=== PATIENT | female | born 1940 | race Caucasian/White ===

== ENCOUNTER 2021-07-05 13:15 | Emergency (ER) | payer MEDICARE, OTHER | END 2021-07-05 14:20 | disposition home or self-care (01) | LOC: ERS 13:15 | DX: M25.562 Pain in left knee (principal); E78.5 Hyperlipidemia, unspecified; Z79.899 Other long term (current) drug therapy | CPT/HCPCS: 99283 ==

== ENCOUNTER 2022-10-05 17:39 | Inpatient (IN) | payer MEDICARE ==
[2022-10-05 19:44] LABS: #Eosinphils 0.2 thou/uL (0.0-0.7); #Lymphocytes 1.9 thou/uL (1.20-3.40); #Monocytes 0.7 thou/uL (0.11-0.59); %Basophils 0.5 % (0.0-1.0); %Eosinophils 2.4 % (0.0-10.0); %Lymphocytes 19.4 % (21.0-51.0); %Monocytes 7.4 % (0.0-10.0); %Neutrophils 70.4 % (42.0-75.0); Hemoglobin 12.8 g/dL (12.0-16.0); Mean Corpuscular HGB CONC 33.3 g/dL (32.0-36.0); Mean Corpuscular Hemoglobin 30.4 pg (27.0-31.0); Mean Corpuscular Volume 91.5 fl (78.0-98.0); Mean Platelet Volume 7.4 fL (7.4-10.4); Platelet Count 217 10x3/uL (130-400); RBC Distribution Width 12.7 % (11.5-14.5); Red Blood Cell (RBC) Count 4.21 mill/uL (4.20-5.40); White Blood Cell (WBC) Count 9.9 10x3/uL (4.8-10.8)
[2022-10-05] MEDS ORDERED: CEFAZOLIN 2 GM VIAL ONE (20:00)
[2022-10-05] MEDS ORDERED: Morphine 4 MG/ML VIAL ONE (20:00)
[2022-10-05] MEDS ORDERED: Boostrix 0.5 ML (Tdap) VIAL (>/=7 yrs of age) ONE (20:00)
[2022-10-05 20:15] LABS: PTT 28.6 sec (22.9-36.1); Prothrombin Time 13.8 sec (12.0-14.7)
[2022-10-05] MEDS ORDERED: Ondansetron PF 4 MG/2 ML Vial IVP PRN ×2 (21:45→22:16)
[2022-10-05] MEDS ORDERED: Ondansetron ODT 4 MG TAB SL PRN (21:45)
[2022-10-05 21:53] VITALS: BMI 28.0
[2022-10-05 22:07] LABS: Albumin 3.8 g/dL (3.4-4.8)
[2022-10-05 22:08] LABS: Chloride 104 mmol/L (98-107); Potassium 3.8 mmol/L (3.5-5.1); Sodium 141 mmol/L (136-145)
[2022-10-05 22:09] LABS: Calcium 8.6 mg/dL (7.8-10.44); Glucose 101 mg/dL (83-110)
[2022-10-05 22:10] LABS: Globulin 2.1 g/dL (2.4-3.5); Protein, Total 5.9 g/dL (5.8-8.1)
[2022-10-05 22:11] LABS: Anion Gap 13 mmol/L (10-20); Bilirubin, Total 0.2 mg/dL (0.2-1.2); Carbon Dioxide 28 mmol/L (23-31)
[2022-10-05 22:12] LABS: Alkaline Phosphatase 52 U/L (40-110)
[2022-10-05 22:13] LABS: Calc. Creatinine Clearance 62 mL/min (70-130); Estimated GFR 75
[2022-10-05 22:14] LABS: BUN (Urea Nitrogen) 22 mg/dL (9.8-20.1)
[2022-10-05 22:15] LABS: ALT (SGPT) 16 U/L (8-55); AST (SGOT) 19 U/L (5-34)
[2022-10-05] MEDS ORDERED: hydrALAZINE 20 MG/ML VIAL SLOW IVP PRN (22:16)
[2022-10-05] MEDS ORDERED: Dextrose 5% in Water 1,000 ML IV PRN (22:16)
[2022-10-05] MEDS ORDERED: Dextrose 50% Abboject 50 ML SYRINGE SLOW IVP PRN (22:16)
[2022-10-05] MEDS ORDERED: Morphine 2 MG/ML VIAL SLOW IVP PRN (22:16)
[2022-10-05] MEDS ORDERED: Ipratropium/Albuterol 3 ML NEB NEB PRN (22:16)
[2022-10-05] MEDS: Acetaminophen 500 MG TAB PO SCH (23:08)
[2022-10-05] MEDS ORDERED: traZODone HCl 50 MG TAB PO SCH (23:30)
[2022-10-05] MEDS ORDERED: Sodium Chloride 0.9% 1,000 ML IV SCH (23:55)
[2022-10-06] MEDS: Acetaminophen 500 MG TAB PO SCH ×4 (05:36→23:59)
[2022-10-06 07:07] LABS: #Eosinphils 0.2 thou/uL (0.0-0.7); #Lymphocytes 1.8 thou/uL (1.20-3.40); #Monocytes 0.6 thou/uL (0.11-0.59); #Neutrophils 4.5 thou/uL (1.40-6.50); %Basophils 0.2 % (0.0-1.0); %Eosinophils 2.7 % (0.0-10.0); %Lymphocytes 25.7 % (21.0-51.0); %Monocytes 8.5 % (0.0-10.0); %Neutrophils 62.9 % (42.0-75.0); Hemoglobin 11.3 g/dL (12.0-16.0); Mean Corpuscular HGB CONC 32.5 g/dL (32.0-36.0); Mean Corpuscular Hemoglobin 29.9 pg (27.0-31.0); Mean Corpuscular Volume 91.9 fl (78.0-98.0); Mean Platelet Volume 7.7 fL (7.4-10.4); Platelet Count 204 10x3/uL (130-400); RBC Distribution Width 12.8 % (11.5-14.5); Red Blood Cell (RBC) Count 3.79 mill/uL (4.20-5.40); White Blood Cell (WBC) Count 7.1 10x3/uL (4.8-10.8)
[2022-10-06 07:25] LABS: Anion Gap 9 mmol/L (10-20); BUN (Urea Nitrogen) 15 mg/dL (9.8-20.1); Calc. Creatinine Clearance 72 mL/min (70-130); Calcium 8.3 mg/dL (7.8-10.44); Carbon Dioxide 30 mmol/L (23-31); Chloride 107 mmol/L (98-107); Estimated GFR 87; Glucose 83 mg/dL (83-110); Potassium 3.8 mmol/L (3.5-5.1); Sodium 142 mmol/L (136-145)
[2022-10-06 07:29] LABS: Phosphorus 3.6 mg/dL (2.3-4.7)
[2022-10-06] MEDS: Famotidine 20 MG TAB PO SCH ×2 (09:22→20:49)
[2022-10-06] MEDS: Cyclobenzaprine 10 MG TAB PO PRN ×2 (09:26→16:43)
[2022-10-06] MEDS: traMADol HCl 50 MG TAB PO PRN ×3 (12:23→23:59)
[2022-10-07] MEDS: traMADol HCl 50 MG TAB PO PRN ×3 (05:44→21:39)
[2022-10-07] MEDS: Acetaminophen 500 MG TAB PO SCH ×4 (05:45→23:49)
[2022-10-07] MEDS: Famotidine 20 MG TAB PO SCH ×2 (09:07→21:39)
[2022-10-07] MEDS: Polyethylene Glycol 3350 17 GM Packet PO SCH (09:07)
[2022-10-07] MEDS: Senokot S 8.6-50 MG TAB PO SCH ×2 (09:07→21:39)
[2022-10-07] MEDS: Ferrous Sulfate 325 MG TAB PO SCH (16:43)
[2022-10-07] MEDS: Cyclobenzaprine 10 MG TAB PO PRN (17:46)
[2022-10-08] MEDS: Acetaminophen 500 MG TAB PO SCH ×3 (05:25→18:28)
[2022-10-08] MEDS: traMADol HCl 50 MG TAB PO PRN ×2 (05:25→13:37)
[2022-10-08] MEDS: Famotidine 20 MG TAB PO SCH ×2 (09:41→20:14)
[2022-10-08] MEDS: Ferrous Sulfate 325 MG TAB PO SCH ×2 (09:41→18:29)
[2022-10-08] MEDS: Senokot S 8.6-50 MG TAB PO SCH ×2 (09:41→20:15)
[2022-10-08] MEDS: Ascorbic Acid 500 mg Chewable Tablet PO SCH (09:41)
[2022-10-08] MEDS: Cyclobenzaprine 10 MG TAB PO PRN ×2 (09:41→20:15)
[2022-10-08] MEDS: Polyethylene Glycol 3350 17 GM Packet PO SCH (10:00)
[2022-10-09] MEDS: Acetaminophen 500 MG TAB PO SCH ×4 (00:09→17:23)
[2022-10-09] MEDS: traMADol HCl 50 MG TAB PO PRN ×2 (05:25→21:07)
[2022-10-09] MEDS: Ferrous Sulfate 325 MG TAB PO SCH ×2 (09:31→17:23)
[2022-10-09] MEDS: Ascorbic Acid 500 mg Chewable Tablet PO SCH (09:32)
[2022-10-09] MEDS: Senokot S 8.6-50 MG TAB PO SCH ×2 (09:32→21:04)
[2022-10-09] MEDS: Famotidine 20 MG TAB PO SCH ×2 (09:32→21:04)
[2022-10-09] MEDS: Polyethylene Glycol 3350 17 GM Packet PO SCH (10:25)
[2022-10-09] MEDS: Cyclobenzaprine 10 MG TAB PO PRN (21:07)
[2022-10-10] MEDS: Acetaminophen 500 MG TAB PO SCH ×5 (00:39→23:57)
[2022-10-10] MEDS: Famotidine 20 MG TAB PO SCH ×2 (08:10→21:38)
[2022-10-10] MEDS: Ascorbic Acid 500 mg Chewable Tablet PO SCH (08:10)
[2022-10-10] MEDS: Senokot S 8.6-50 MG TAB PO SCH ×2 (08:10→21:39)
[2022-10-10] MEDS: Atorvastatin Calcium 20 MG TAB PO SCH (08:10)
[2022-10-10] MEDS: Ferrous Sulfate 325 MG TAB PO SCH ×2 (08:10→08:56)
[2022-10-10] MEDS: Venlafaxine HCl XR 150 MG CAP PO SCH (08:10)
[2022-10-10] MEDS: Polyethylene Glycol 3350 17 GM Packet PO SCH (08:11)
[2022-10-10] MEDS: Ibuprofen 200 MG TAB PO PRN (17:11)
[2022-10-11] MEDS: Acetaminophen 500 MG TAB PO SCH ×2 (05:55→11:49)
[2022-10-11] MEDS: Venlafaxine HCl XR 150 MG CAP PO SCH (08:19)
[2022-10-11] MEDS: Ascorbic Acid 500 mg Chewable Tablet PO SCH (08:20)
[2022-10-11] MEDS: Atorvastatin Calcium 20 MG TAB PO SCH (08:20)
[2022-10-11] MEDS: Famotidine 20 MG TAB PO SCH (08:20)
[2022-10-11] MEDS: Ferrous Sulfate 325 MG TAB PO SCH (08:20)
[2022-10-11] MEDS: Polyethylene Glycol 3350 17 GM Packet PO SCH (10:57)
[2022-10-11] MEDS: Senokot S 8.6-50 MG TAB PO SCH (10:57)
[2022-10-11 11:25] VITALS: BP 138/83; TEMP 98.1
[2022-10-11] MEDS: Ibuprofen 200 MG TAB PO PRN (11:51)
== END 2022-10-11 15:10 | DRG 563 ==
LOC: ERS 17:39 → SURG A 19:29
PROVIDERS: ADMIT Student in an Organized Health Care Education/Training Program; ATTEND Student in an Organized Health Care Education/Training Program
DX: S82.142A Displaced bicondylar fracture of left tibia, initial encounter for closed fracture (principal); S61.412A Laceration without foreign body of left hand, initial encounter; F41.9 Anxiety disorder, unspecified; E78.5 Hyperlipidemia, unspecified; W18.30XA Fall on same level, unspecified, initial encounter; I10 Essential (primary) hypertension; Y93.H2 Activity, gardening and landscaping; Y92.007 Garden or yard of unspecified non-institutional (private) residence as the place of occurrence of the external cause; Z79.899 Other long term (current) drug therapy
CPT/HCPCS: 36415; 71045; 80048; 80053; 83735; 84100; 85025; 85610; 85730; 86850; 86900; 86901; 90715; 96365; 96375; G0390; J1650; J2270; J2405; J7050

== ENCOUNTER 2024-10-03 12:30 | Outpatient (CLI) | payer OTHER | END 2024-10-03 12:31 | disposition home or self-care (01) | LOC: BICCT 12:30 | PROVIDERS: ATTEND Urology | DX: R31.29 Other microscopic hematuria (principal); N20.0 Calculus of kidney; K57.30 Diverticulosis of large intestine without perforation or abscess without bleeding; K76.89 Other specified diseases of liver | CPT/HCPCS: 74178; 82565 ==